=== PATIENT | female | born 1970 | race Caucasian/White ===

== ENCOUNTER → 2020-02-04 | Outpatient (CLI) | payer OTHER ==
[~2020-02-04] VITALS: Ht 167.6 cm; Wt 55.8 kg
[~2020-02-04] MED LIST: CLARITIN10 M3 PO; FLONASE 0.05%50 MCG NASAL; HYDROCHLOROTHIA25 M2 PO; NORVASC5 MG PO; TOPROL XL100 MG PO
--- NOTE | ~2020-02-04 | HPC ---
[facility] [address] [place] [address] PAIN MANAGEMENT CONSULTATION Name: ANGY LOUIS Room #: REG MEHDI Ca.Lynette.#: [id number] Admission: 02/04/20 Attend Phys: Edgar Morelos DO Discharge: Date of : 72 Report #: [id number] CC: Uri Abdul DATE OF SERVICE: 02/04/2020 REFERRING PHYSICIAN: Dr. Kaylen Abdul. CHIEF COMPLAINT: Neck pain, right upper extremity pain with paresthesias. HISTORY OF PRESENT ILLNESS: As you know, the patient is a very pleasant 49-year-old female who reports worsening of neck and right upper extremity pain that began to be noticed more frequently in November of 2019. She believes this began about the of the . She denies injury or trauma that may have led to symptom occurrence. 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 This has been going on for about 15 years. The patient had trialled mjyf-sax-egydukm medications, rest and relaxation without benefit. She sought evaluation through her primary care physician, Dr. Uri Brantley who trialed the patient on conservative therapy. This unfortunately did not provide much in the way of improvement. She continued to experience pain and discomfort in a radicular fashion. When she saw her CONSTRUCTION PROJECT ADMINISTRATOR, Dr. Kaylen Abdul, who evaluated the patient and determined her symptoms may be related to cervical radiculopathy. She was then referred to our clinic to discuss treatment options. She comes to us today with an imaging from 03/2019 showing changes at the lower cervical levels. The patient reports today pain is intermittent. She describes the pain as shooting, numbness and tingling. Places current pain score 5/10, daily average at 5/10, worst pain has been is 10/10. The patient states her pain is exacerbated with activity such as lifting and turning her neck, improves with nothing to date. She has been referred to our service to discuss treatment options for possible cervical radiculopathy. PAST MEDICAL HISTORY: 1. Hypertension. 2. Migraine headaches. 3. Neck pain. PAST SURGICAL HISTORY: Tonsillectomy, excision of right feet bone spur. SOCIAL HISTORY: The patient denies tobacco use. Denies IV or illicit drug use. Denies any chronic alcohol use. 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 She is working, not receiving workmen's compensation nor is trying to obtain discrete benefits. She is not in litigation in regards to pain. She is unaccompanied at today's visit. REVIEW OF SYSTEMS: Positive for wearing corrective eyewear, numbness and tingling sensations involving the right upper extremity, all the way into the hand. Chronic neck pain. All other review of systems negative per 12-point review of systems other than those listed in history of present illness. Pain impact score 42/70 indicating severe interference of daily activities secondary to pain. ALLERGIES: MORPHINE. CURRENT MEDICATIONS: Fluticasone 1 spray each nostril twice a day, loratadine 10 mg per day, hydrochlorothiazide 25 mg per day, amlodipine 5 mg per day, metoprolol XL 100 mg once a day. IMAGING: MRI cervical spine obtained 03/30/2019 shows C3-C4, C4-C5 unremarkable. C5-C6 disk osteophyte complex flattening of the right aspect of the thecal sac. Central canal is normal. There is uncovertebral joint hypertrophy, qhvgmbgk-fy-hyheel bilateral neural foraminal stenosis. C6-C7, disk osteophyte complex protruding disk material severely narrowing the left neural foramen, moderate right neural foraminal stenosis. C7-T1 acute high signal right foraminal disk protrusion which narrows the right foramen. Central canal is grossly normal. No significant left foraminal stenosis. PHYSICAL EXAMINATION: VITAL SIGNS: Blood pressure 115/81, pulse 85, respiratory rate 14 and unlabored. The patient is 100% on room air. Height 5 feet 6 inches tall, weight 123 pounds, BMI calculated 19.9. GENERAL: Well-developed, well-nourished, well-hydrated 49-year-old female appearing her stated age, placing current pain score 5/10. HEENT: Normocephalic, atraumatic. Pupils equal, round and reactive to light. Extraocular muscles are intact. Sclerae nonicteric without injection. NEUROLOGIC: Cranial nerves 2-12 grossly intact. Speech fluent. The patient deemed a good historian. LUNGS: Clear, no wheeze, rhonchi or rales. CARDIOVASCULAR: Regular. No appreciable gallop, no rub. ABDOMEN: Soft, nontender, nondistended, normoactive bowel sounds. EXTREMITIES: Show no clubbing, no cyanosis, no edema. MUSCULOSKELETAL: Upper extremity strength is symmetrical 5/5, intact to light touch from C5-T1 dermatomes. Deep tendon reflexes at biceps, brachioradialis and triceps are equal and symmetrical. Spurlings test positive right and negative left. Palpatory tenderness is noted over the paraspinal musculature of cervical spine. No spinous process tenderness. Cook Supervisor strength appears normal in comparing left upper extremity to right. ASSESSMENT: 1. Cervical radiculopathy. 2. Displacement of cervical intervertebral disk with radiculopathy. 3. Severe neural foraminal stenosis of the cervical spine. 4. Degeneration of the cervical spine. PLAN: 1. Based on today's physical exam and history the patient has provided, the description the patient uses in regards to pain as well as the location of symptoms, it would appear the patient is suffering from a cervical radiculopathy. We have reviewed the patient's MRI from 03/30/2019 and there does appear to be correlations of the findings of this MRI to the patient's current condition. Based on the findings of 03/2019, we would recommend the following treatment options. We have discussed treatment options that would include physical therapy, stretching exercises and traction techniques of the cervical spine. We discussed suggestions for treatment with medication management including amitriptyline, nortriptyline, Cymbalta, Lyrica or gabapentin along with consistent nonsteroidal anti-inflammatory. We also discussed cervical epidural injections for which the patient was referred to our clinic. We also then discussed surgical options, which based on the 2019 that it may be necessary and this would include either a spinal cord stimulator or classic cervical fusion with decompression of the C5-C6 and C6-C7 levels. After reviewing the risks and benefits of all proposed treatment options, the patient chose to begin with a cervical epidural injection under fluoroscopic guidance. 2. The patient was advised due to third republican payer restrictions, authorization would have to be obtained before the patient could undergo a cervical epidural injection. Authorization will take somewhere between 4-7 working days. We will begin this process immediately. Once it has been completed, we will have the patient return to undergo cervical epidural injection under fluoroscopic guidance. 3. No medication changes made at today's visit. The patient will continue current medical therapy as prior prescribed. 4. We will see the patient back in followup visit once we have achieved authorization for the patient to undergo cervical epidural injection under fluoroscopic guidance to address cervical radicular symptoms involving the neck and right upper extremity. 5. We wish to thank the referring physician, Dr. Kaylen Abdul for the referral of this patient to our clinic. We will keep you apprised of response to treatment as we address cervical radiculopathy. Again, we wish to thank you for the opportunity to see this patient in consultation. By: [id number] Edgar Morelos DO /nt
[2020-02-04 14:01] VITALS: BP 115/81
--- NOTE | 2020-02-04 14:17 | NUR ---
Pain Clinic Assessment: 1. History of Osteoarthritis: NO History of Rheumatoid Arthritis: NO 2. Height: 5 ft. 6 in. 167.6 cm. Weight: 123.0 lb. oz. 55.792 kg. Patient's BMI: 19.9 3. Vital Signs: BP: 115/81 Pulse: 85 Resp: 14 Temp: 02 Sat: 100 ECG Mon: 4. Pain Intensity: 5 5. Fall Risk: Dizziness: N Needs help standing or walking: N Fallen in the last 3 months: N Fall risk comments: 6. Patient on Blood Thinner: None 7. History of Hypertension: Y 8. Opioid Therapy greater than 6 weeks: N Opiate Contract Signed: 9. Risk Assessment Tool Provided: 10. Functional Assessment Tool: 11. Recreational Drug Use: Never Drug Type: Tobacco Use: Never Smoker Tobacco Type: Amount or Packs/day: How Many Years: Alcohol Use: No Frequency: Quant:
== END ==
LOC: PAIN 06:59
PROVIDERS: ATTEND Anesthesiology Pain Medicine
DX: M50.10 Cervical disc disorder with radiculopathy, unspecified cervical region (principal); M48.02 Spinal stenosis, cervical region; R20.2 Paresthesia of skin; M79.641 Pain in right hand; I10 Essential (primary) hypertension; Z88.8 Allergy status to other drugs, medicaments and biological substances; Z79.899 Other long term (current) drug therapy

== ENCOUNTER → 2020-02-10 | Outpatient (CLI) | payer OTHER ==
[~2020-02-10] VITALS: Ht 167.6 cm; Wt 57.1 kg
[2020-02-10 14:13] VITALS: BP 123/73
--- NOTE | 2020-02-10 14:34 | NUR ---
Pain Clinic Assessment: 1. History of Osteoarthritis: NO History of Rheumatoid Arthritis: NO 2. Height: 5 ft. 6 in. 167.6 cm. Weight: 125.8 lb. oz. 57.062 kg. Patient's BMI: 20.3 3. Vital Signs: BP: 123/73 Pulse: 82 Resp: 14 Temp: 02 Sat: 100 ECG Mon: 4. Pain Intensity: 4 5. Fall Risk: Dizziness: N Needs help standing or walking: N Fallen in the last 3 months: N Fall risk comments: 6. Patient on Blood Thinner: None 7. History of Hypertension: Y 8. Opioid Therapy greater than 6 weeks: N Opiate Contract Signed: 9. Risk Assessment Tool Provided: low-0 10. Functional Assessment Tool: 11. Recreational Drug Use: Never Drug Type: Tobacco Use: Never Smoker Tobacco Type: Amount or Packs/day: How Many Years: Alcohol Use: No Frequency: Quant:
--- NOTE | 2020-02-11 11:24 | HPC ---
[address] [address] PAIN MANAGEMENT CONSULTATION Name: ANGY LOUIS Room #: REG MEHDI [facility].#: [id number] Admission: 02/10/20 Attend Phys: Edgar Morelos DO Discharge: Date of : 72 Report #: [id number] CC: Uri Abdul MD DATE OF SERVICE: 02/10/2020 REFERRING PHYSICIAN: Erika Abdul MD CHIEF COMPLAINT: Neck pain, right upper extremity pain with paresthesias. HISTORY OF PRESENT ILLNESS: As you know, the patient is a very pleasant 49-year-old female who was referred to our service by her population health manager to address suspected cervical radiculopathy with right upper extremity pain with paresthesias. The patient was seen in consultation per the request of Dr. Erika Abdul on 02/04/2020. At that visit, the patient was given the presumptive diagnosis of cervical radiculopathy secondary to the displacement of intervertebral disk causing severe neural foraminal stenosis. She was offered treatment options including medication management, physical therapy with traction exercises, cervical epidural injection under fluoroscopic guidance and surgical decompression. After reviewing the risks and benefits of all proposed treatment options, she chose to undergo a cervical epidural injection. She returns today in followup visit having received authorization to undergo the procedure. She is placing her current pain score at 4/10. She describes the pain as intermittent numbness, shooting and tingling; exacerbated with sitting, improves with heat and cold compresses. She returns today for the first in series of cervical epidural injections under fluoroscopic guidance. ALLERGIES: MORPHINE. CURRENT MEDICATIONS: Fluticasone, loratadine, hydrochlorothiazide, amlodipine, metoprolol XL. SOCIAL HISTORY: The patient denies tobacco use. Denies IV or illicit drug use. Denies any chronic alcohol use. 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 IMAGING: No new imaging available. PHYSICAL EXAMINATION: VITAL SIGNS: Blood pressure 123/73, pulse 82, respiratory rate 14 and unlabored. The patient is 100% on room air. Height 5 feet 6 inches tall, weight 125.8 pounds, BMI calculated 20.3. GENERAL: Well-developed, well-nourished, well-hydrated 49-year-old female appearing stated age, pain is rated today 4/10. HEENT: Normocephalic, atraumatic. Pupils equal, round and reactive. Speech is fluent. EXTREMITIES: Show no clubbing, no cyanosis. No appreciable edema. MUSCULOSKELETAL: Spurling's test positive right, negative left. Palpatory tenderness is noted once again over the paraspinal musculature of cervical spine, right greater than left. There is also tenderness to palpation over the AC joint on the right, negative left. Upper extremity strength appears symmetrical. ASSESSMENT: 1. Cervical radiculopathy. 2. Displacement of cervical intervertebral disk with radiculopathy. 3. Severe neural foraminal stenosis of the cervical spine. 4. Degeneration of the cervical spine. 5. Chronic intractable pain. PLAN: 1. The patient returns today in followup visit having received authorization by her third green party payer to undergo cervical epidural injection under fluoroscopic guidance. The patient has been advised of the risks and the benefits of a cervical epidural injection. These risks include, but are not necessarily limited to; bleeding, bruising, infection, worsening pain, no relief of pain, temporary or permanent muscle weakness, temporary or permanent nerve damage, possible paralysis and . The patient states understood and wished to proceed. 2. No medication changes made at today's visit. The patient will continue current medical therapy as prior prescribed. 3. We plan to see the patient back in followup visit in 1 month. At that time, review the efficacy of today's cervical epidural injection and determine if next in the series of cervical epidural injections might be recommended. PROCEDURE NOTE DESCRIPTION OF PROCEDURE: C7-T1 cervical epidural steroid injection under fluoroscopic guidance. This is the first procedure of the first series that the patient is undergoing. After obtaining written consent, the patient was taken back to the fluoroscopy suite and placed in a prone position with separate pillows under chest and forehead to decrease cervical lordosis. The skin overlying the cervical area was prepped and draped in an aseptic fashion. The C7-T1 vertebral interspace was identified by AP fluoroscopy. The skin and subcutaneous tissue overlying the target site of injection was anesthetized using 3 mL of 1% lidocaine. A 20-gauge 3-1/2 inch Tuohy needle was advanced under fluoroscopic guidance toward the epidural space using a midline approach. The epidural space was identified using a loss of resistance to air technique. After negative aspiration for heme or cerebrospinal fluid, a total of 1 ml of Omnipaque was injected. A cervical epidurogram was confirmed using AP and oblique fluoroscopy. After negative aspiration for heme or cerebrospinal fluid, 5 mL of a solution containing 2 mL 40 mg per mL, 80 mg total triamcinolone along with 3 mL of lidocaine 1% was injected in increments. Contrast spread was noted from posterior epidural space. The needle was then retracted approximately alf and the needle track was flushed with 1 mL of 1% lidocaine. There were no apparent new sensory deficits in the upper extremities present following the procedure. A sterile bandage was placed over the injection site. The heart rate, pulse oximetry and blood pressure were continuously monitored after the procedure. There were no apparent complications. The patient tolerated the procedure well and was carefully escorted in the recovery room in stable condition. After meeting discharge criteria, the patient was discharged home. <ELECTRONICALLY SIGNED> By: Edgar Morelos DO 02/11/20 [id number] Edgar Morelos DO /nt
== END | disposition home or self-care (01) ==
LOC: PAIN 07:00
PROVIDERS: ATTEND Anesthesiology Pain Medicine
DX: M50.10 Cervical disc disorder with radiculopathy, unspecified cervical region (principal); M47.22 Other spondylosis with radiculopathy, cervical region; M48.02 Spinal stenosis, cervical region; G89.29 Other chronic pain; Z98.890 Other specified postprocedural states; Z79.899 Other long term (current) drug therapy; Z88.8 Allergy status to other drugs, medicaments and biological substances